=== PATIENT | female | born 1970 | race African-American/Black ===

== ENCOUNTER 2022-11-12 01:12 | Day surgery (SDC) | payer OTHER, SELFPAY ==
[2022-11-05 10:13] VITALS: BMI 38.2
--- NOTE | 2022-11-12 08:36 | P.HP_ITS ---
History of Present Illness History of Present Illness Consent: Risks, benefits, and alternatives have been discussed and questions answered. Patient agrees to proceed with procedure. Chief complaint: neoplasm screening Narrative: Isatu Skinner is a 52 year old female Presents for screening colonoscopy. Patient's current weight appetite and bowel movements are normal. She denies abdominal pain. She has had no bleeding. Family history is noncontributory. Review of Systems Review of Systems: Review of systems noncontributory. [facility] Social History Social History Smoking status: Never smoker Alcohol intake: current Drinks per week: 1 Alcohol use details: Socially Substance use type: does not use Living arrangements: alone Meds Home Medications and Allergies Home Medications Medication Instructions Recorded Confirmed Type peg 3350-electrolytes 236 240 ml PO Q10M #4,000 mL 10/30/22 11/05/22 Rx gram-22.74 gram-6.74 gram-5.86 gram solution (Golytely) metoprolol tartrate 50 mg tablet 50 mg PO DAILY 11/05/22 11/05/22 History triamterene 37.5 1 tablet PO DAILY 11/05/22 11/05/22 History mg-hydrochlorothiazide 25 mg tablet Allergies Allergy/AdvReac Type Severity Reaction Status Date / Time No Known Allergies Allergy Verified 11/12/22 08:38 Exam Narrative: Physical exam reveals patient to be alert. Vital signs stable. HEENT exam is unremarkable. Patient is anicteric. Lungs are clear to auscultation and percussion. Heart is without murmur or extra sounds. Abdomen bowel sounds are present soft nontender with no organomegaly. Digital external rectal exam is normal. Assessment and Plan Assessment and plan (1) Encounter for screening colonoscopy: Code(s): Z12.11 - Encounter for screening for malignant neoplasm of colon Status: Acute Assessment and Plan: Patient presents for screening colonoscopy. She appears to be at average risk for colon polyps. Further recommendations may be given after endoscopy.
[2022-11-12 08:40] VITALS: BP 147/87; PULSE 77; RESP 20; TEMP 36.6; O2SAT 100; BMI 38.1
[2022-11-12] MEDS: LACTATED RINGERS 1,000 ML 150 ML IV CONT (08:44)
--- NOTE | 2022-11-12 08:53 | SUR.PREOP ---
pt states that she started taking the golytely prep around 1530 yesterday afternoon. it started making her nauseated so she slowed way down and eventually she fell asleep after drinking half the prep. she woke up this morning and tried to drink more, states maybe she drank approximately another glass. states bms were clear yellow but when she arrived at hospital, stool was watery brown with some solids. dr simmons is aware, dr laboy also made aware.
--- NOTE | 2022-11-12 09:16 | P.PNAN_ITS ---
Anes - Initial Pre Proc Eval Procedure: Operation Date: 11/12/22 09:45 Proposed Procedures p Screening Colonoscopy - Brody Anguiano MD Date/Time: 11/12/22 09:16 Surgeon: Brody Anguiano MD Pre Op Diagnosis: neoplasm screening Patient Data Age: 52 Gender: F Height: 1.75 m Weight: 117.1 kg Last Vital Signs Temp 97.8 F 11/12/22 08:40 Pulse 77 11/12/22 08:40 Resp 20 11/12/22 08:40 BP 147/87 H 11/12/22 08:40 Pulse Ox 100 11/12/22 08:40 O2 Del Method Room Air 11/12/22 08:40 Allergies Allergy/AdvReac Type Severity Reaction Status Date / Time No Known Allergies Allergy Verified 11/12/22 08:38 Home Medications Medication Instructions Recorded Confirmed Type peg 3350-electrolytes 236 240 ml PO Q10M #4,000 mL 10/30/22 11/05/22 Rx gram-22.74 gram-6.74 gram-5.86 gram solution ([employer]) metoprolol tartrate 50 mg tablet 50 mg PO DAILY 11/05/22 11/05/22 History triamterene 37.5 1 tablet PO DAILY 11/05/22 11/12/22 History mg-hydrochlorothiazide 25 mg tablet Patient hx anesthesia problems: none Family hx anesthesia problems: none Results Review: All pre-operative results and documents have been reviewed as part of the pre- operative evaluation. [facility] Social History Social History Smoking status: Never smoker Alcohol intake: current Drinks per week: 1 Alcohol use details: Socially Substance use type: does not use Living arrangements: alone Anes - Eval Final PreProcedure Day of Procedure 11/12/22 09:16 Patient weight: obese Heart: regular rate and rhythm Lungs: clear to auscultation Airway: Mallampati scale class II Neurological: alert and oriented Last oral intake: >/= 8 hours ASA classification: III Emergent: no Anesthetic plan: proceed Anesthesia type and monitoring: general GIVS and standard monitoring Results Review: All pre-operative results and documents have been reviewed as part of the pre- operative evaluation. Informed Consent: The patient's anesthetic plan and its attendant risks and benefits were discussed with the patient/family/POA. Questions were solicited and answers provided to the satisfaction of the patient/family/POA.
[2022-11-12] MEDS: SIMETHICONE ORAL SUSPENSION 20 MG/0.3 ML 30 ML BOTTLE 0.6 ML IRRIGATION (10:25)
[2022-11-12 10:36] VITALS: BP 138/82; PULSE 77; RESP 25; O2SAT 99
[2022-11-12 10:46] VITALS: BP 151/82; PULSE 67; RESP 19; O2SAT 100
[2022-11-12 10:56] VITALS: BP 159/90; PULSE 69; RESP 22; O2SAT 100
== END 2022-11-12 11:11 | disposition home or self-care (01) ==
PROVIDERS: PCP Family Medicine; Visit Provider Internal Medicine Gastroenterology
PROC: 0DJD8ZZ Inspection of Lower Intestinal Tract, Via Natural or Artificial Opening Endoscopic (ICD-10-PCS; CPT 45378; principal; 2022-11-12 09:45)
DX: Z12.11 Encounter for screening for malignant neoplasm of colon (principal); K64.8 Other hemorrhoids; E66.9 Obesity, unspecified; Z68.38 Body mass index [BMI] 38.0-38.9, adult
CPT/HCPCS: 45378; J2704; J7120